=== PATIENT | female | born 1990 | race Caucasian/White ===

== ENCOUNTER 2017-05-02 18:12 | Emergency (ER) | payer BC ==
[~2017-05-02] VITALS: Ht 172.7 cm; Wt 110.8 kg
[2017-05-02 20:32] LABS: APPEARANCE CLEAR ((CLEAR)); BILIRUBIN NEGATIVE; BLOOD NEGATIVE; COLOR STRAW ((YELLOW)); GLUCOSE (STRIP) 150; KETONES NEGATIVE; LEUKOCYTES NEGATIVE; NITRITE NEGATIVE; PROTEIN (STRIP) NEGATIVE; SPECIFIC GRAVITY 1.009 (1.000-1.030); UCUL ADDED? NO; UROBILINOGEN 0.2 MG/DL (0.2-1.0)
[2017-05-02 20:55] LABS: HEMATOCRIT 42.3 % (36.0-46.0); HEMOGLOBIN 14.4 G/DL (11.9-15.5); MCH 29.6 PG (29.0-34.0); MCV 86.9 FL (83-99); PLATELET COUNT 366 K/uL (156-360); RBC DIS.WIDTH-CV 11.4 % (11.8-14.6); RBC DIS.WIDTH-SD 36.4 % (39-53); RED BLOOD COUNT 4.87 M/uL (3.80-5.20); WHITE BLOOD COUNT 8.4 K/uL (4.1-10.2)
[2017-05-02 21:04] LABS: CHLORIDE 104 mEq/L (99-109)
[2017-05-02 21:05] LABS: POTASSIUM 4.5 mEq/L (3.7-5.4); SODIUM 138 mEq/L (136-147)
[2017-05-02 21:06] LABS: GLUCOSE 145 mg/dL (70-99)
[2017-05-02 21:10] LABS: CREATININE 0.9 mg/dL (0.6-1.3); GFR ESTIMATE (CALCULATED) > 59 mL/min/
[2017-05-02 21:11] LABS: UREA NITROGEN (BUN) 10 mg/dL (9-23)
[2017-05-02 21:16] LABS: TROP-I INTERPRETATION NEGATIVE; TROPONIN-I < 0.01 ng/mL (0.0-0.30)
[2017-05-02 21:35] LABS: D-DIMER ELISA < 150.00 ng/mLDDU (<230)
[2017-05-02] MEDS ORDERED: NAPROSYN500 MG PO (21:40)
[2017-05-02] MEDS ORDERED: FLEXERIL10 MG PO (21:40)
[2017-05-02 22:18] VITALS: BP 132/82
== END 2017-05-02 21:50 | disposition home or self-care (01) ==
LOC: EME 18:12
PROVIDERS: Emergency Medicine
DX: M54.5 Low back pain (principal); R07.9 Chest pain, unspecified; E11.9 Type 2 diabetes mellitus without complications; I10 Essential (primary) hypertension; E03.9 Hypothyroidism, unspecified; Z79.3 Long term (current) use of hormonal contraceptives
CPT/HCPCS: 71046; 80048; 81003; 84484; 85027; 85379; 87086; 93005; 99281; 99285